=== PATIENT | female | born 1945 | race Caucasian/White ===

== ENCOUNTER → 2023-10-12 10:00 | Outpatient (REF) | payer MEDICARE, OTHER, SELFPAY | LOC: HWRAD 10:00 | PROVIDERS: ATTENDING PHYSICIAN Internal Medicine Critical Care Medicine; FAMILY PHYSICIAN Nurse Practitioner Adult Health; REFERRING PHYSICIAN Internal Medicine Medical Oncology | DX: Z87.891 Personal history of nicotine dependence (principal) | CPT/HCPCS: 71271 ==

== ENCOUNTER → 2023-11-22 08:42 | Outpatient (REF) | payer MEDICARE, OTHER, SELFPAY ==
[2023-11-22 12:51] LABS: % Basophils 1.1 % (0-2); % Immature Granulocytes 0.1 % (0-0.5); % Lymphocytes 32.4 % (20.5-51.1); % Monocytes 6.9 % (1.7-9.3); % Neutrophils 54.5 % (42.2-75.2); Absolute Basophils 0.1 10^3/uL (0-0.2); Absolute Eosinophils 0.4 10^3/uL (0-0.7); Absolute Lymphocytes 2.3 10^3/uL (1.2-3.4); Absolute Monocytes 0.5 10^3/uL (0.1-0.6); Absolute Neutrophils 3.9 10^3/uL (1.4-6.5); Hematocrit 38.5 % (37.0-47.0); Mean Corp Hgb Conc. 33.8 g/dL (33.0-37.0); Mean Corpuscular Volume 91.9 fL (81.0-99.0); Mean Platelet Volume 10.4 fL (7.4-10.4); Nucleated Red Blood Cells % 0 %; Platelet Count 192 10^3/uL (130-400); Red Blood Cell Count 4.19 10^6/uL (4.20-5.40); White Blood Cell Count 7.2 10^3/uL (4.8-10.8)
[2023-11-22 13:42] LABS: ALT (SGPT) 28 U/L (0-35); AST (SGOT) 28 U/L (14-36); Albumin 4.1 g/dl (3.5-5.0); Alkaline Phosphatase 70 U/L (38-126); Blood Urea Nitrogen 18 mg/dl (7-17); Calcium 9.4 mg/dl (8.4-10.2); Carbon Dioxide 29 mmol/L (22-30); Chloride 106 mmol/L (98-107); Glucose 101 mg/dl (70-99); HDL Cholesterol 57 mg/dl; Iron 97 ug/dl (37-170); LDL Cholesterol, Calculated 75 mg/dl; Potassium 4.6 mmol/L (3.5-5.1); Sodium 139 mmol/L (135-145); Total Bilirubin 0.5 mg/dl (0.2-1.3); Total Cholesterol 155 mg/dl (50-199); Total Protein 6.6 g/dl (6.3-8.2); Triglyceride 117 mg/dl (10-149); Very Low Density Lipoprotein 23 mg/dl (0-30); eGFR > 60.00
[2023-11-22 13:51] LABS: Percent Saturation 22 % (20-50); Total Iron Binding Capacity 423 ug/dl (265-497)
[2023-11-22 13:53] LABS: Glycohemoglobin (HgbA1c) 6.1 % (4.0-5.6)
[2023-11-22 14:09] LABS: Vitamin D, 25-OH*** 41.1 ng/mL (30-80)
[2023-11-22 14:19] LABS: C-Reactive Protein < 5.00 mg/L (0.0-10.00)
[2023-11-22 14:23] LABS: TSH Reflex To Free T4 2.09 uIU/ml (0.47-4.68)
[2023-11-22 14:27] LABS: Ferritin 38.5 ng/ml (11.1-264.0)
[2023-11-23 08:44] LABS: Intact PTH 50.8 pg/ml (13.6-85.8)
== END ==
LOC: HWLAB 08:42
PROVIDERS: ATTENDING PHYSICIAN Nurse Practitioner Adult Health
DX: E55.9 Vitamin D deficiency, unspecified (principal); M81.0 Age-related osteoporosis without current pathological fracture; D50.8 Other iron deficiency anemias; F32.1 Major depressive disorder, single episode, moderate; K76.0 Fatty (change of) liver, not elsewhere classified; Z13.29 Encounter for screening for other suspected endocrine disorder; R73.09 Other abnormal glucose
CPT/HCPCS: 80053; 80061; 82306; 82728; 83036; 83540; 83550; 83970; 84443; 85025; 86140

== ENCOUNTER → 2023-11-24 11:27 | Outpatient (REF) | payer MEDICARE, OTHER, SELFPAY | LOC: RAD 11:27 | PROVIDERS: ATTENDING PHYSICIAN Nurse Practitioner Adult Health | DX: M25.561 Pain in right knee (principal) | CPT/HCPCS: 73564 ==

== ENCOUNTER 2023-12-23 06:18 | Outpatient (RCR) | payer MEDICARE, OTHER, SELFPAY | END 2023-12-23 23:59 | disposition home or self-care (01) | LOC: RPT 06:18 | PROVIDERS: ATTENDING PHYSICIAN Nurse Practitioner Adult Health | DX: M25.561 Pain in right knee (principal); R26.81 Unsteadiness on feet; Z73.6 Limitation of activities due to disability | CPT/HCPCS: 97162; 97530 ==

== ENCOUNTER 2024-01-21 11:32 | Outpatient (RCR) | payer MEDICARE, OTHER, SELFPAY | END 2024-01-21 23:59 | disposition home or self-care (01) | LOC: RPT 11:32 | PROVIDERS: ATTENDING PHYSICIAN Nurse Practitioner Adult Health | DX: M25.561 Pain in right knee (principal); R26.81 Unsteadiness on feet; Z73.6 Limitation of activities due to disability | CPT/HCPCS: 97110; 97112; 97530 ==

== ENCOUNTER 2024-02-22 08:35 | Outpatient (RCR) | payer MEDICARE, OTHER, SELFPAY | END 2024-02-22 23:59 | disposition home or self-care (01) | LOC: RPT 08:35 | PROVIDERS: ATTENDING PHYSICIAN Nurse Practitioner Adult Health | DX: M25.561 Pain in right knee (principal); R26.81 Unsteadiness on feet; Z73.6 Limitation of activities due to disability | CPT/HCPCS: 97110; 97112; 97530 ==

== ENCOUNTER → 2024-02-22 08:50 | Outpatient (REF) | payer MEDICARE, OTHER, SELFPAY | LOC: RST 08:50 | PROVIDERS: ATTENDING PHYSICIAN Internal Medicine Critical Care Medicine; FAMILY PHYSICIAN Nurse Practitioner Adult Health | DX: R13.10 Dysphagia, unspecified (principal); R05.3 Chronic cough | CPT/HCPCS: 74230; 92611 ==

== ENCOUNTER 2024-03-21 09:09 | Outpatient (RCR) | payer MEDICARE, OTHER, SELFPAY | END 2024-03-21 23:59 | disposition home or self-care (01) | LOC: RPT 09:09 | PROVIDERS: ATTENDING PHYSICIAN Nurse Practitioner Adult Health | DX: M25.561 Pain in right knee (principal); R26.81 Unsteadiness on feet; Z73.6 Limitation of activities due to disability | CPT/HCPCS: 97110; 97112; 97530 ==

== ENCOUNTER → 2024-04-13 13:09 | Outpatient (REF) | payer MEDICARE, OTHER, SELFPAY ==
[2024-04-13 15:02] LABS: % Basophils 0.8 % (0-2); % Immature Granulocytes 0.2 % (0-0.5); % Lymphocytes 22.9 % (20.5-51.1); % Monocytes 6.7 % (1.7-9.3); % Neutrophils 67.4 % (42.2-75.2); Absolute Basophils 0.1 10^3/uL (0-0.2); Absolute Eosinophils 0.1 10^3/uL (0-0.7); Absolute Lymphocytes 1.4 10^3/uL (1.2-3.4); Absolute Monocytes 0.4 10^3/uL (0.1-0.6); Absolute Neutrophils 4.1 10^3/uL (1.4-6.5); Hematocrit 41.8 % (37.0-47.0); Mean Corp Hgb Conc. 33.5 g/dL (33.0-37.0); Mean Corpuscular Hgb 31.4 pg (27.0-31.0); Mean Corpuscular Volume 93.7 fL (81.0-99.0); Mean Platelet Volume 10.3 fL (7.4-10.4); Nucleated Red Blood Cells % 0 %; Platelet Count 175 10^3/uL (130-400); Red Blood Cell Count 4.46 10^6/uL (4.20-5.40); Red Cell Dist. Width 14.4 % (11.5-14.5); White Blood Cell Count 6.1 10^3/uL (4.8-10.8)
[2024-04-13 15:29] LABS: ALT (SGPT) 37 U/L (0-35); AST (SGOT) 36 U/L (14-36); Albumin 4.6 g/dl (3.5-5.0); Alkaline Phosphatase 82 U/L (38-126); Blood Urea Nitrogen 20 mg/dl (7-17); Calcium 9.4 mg/dl (8.4-10.2); Carbon Dioxide 24 mmol/L (22-30); Chloride 102 mmol/L (98-107); Glucose 109 mg/dl (70-99); HDL Cholesterol 55 mg/dl; LDL Cholesterol, Calculated 92 mg/dl; Potassium 4.1 mmol/L (3.5-5.1); Sodium 143 mmol/L (135-145); Total Bilirubin 0.7 mg/dl (0.2-1.3); Total Cholesterol 188 mg/dl (50-199); Total Protein 7.2 g/dl (6.3-8.2); Triglyceride 206 mg/dl (10-149); Very Low Density Lipoprotein 41 mg/dl (0-30); eGFR 58.39
[2024-04-13 15:58] LABS: TSH Reflex To Free T4 1.25 uIU/ml (0.47-4.68)
[2024-04-14 09:03] LABS: Glycohemoglobin (HgbA1c) 5.8 % (4.0-5.6)
== END ==
LOC: REG 13:09
PROVIDERS: ATTENDING PHYSICIAN Nurse Practitioner Adult Health
DX: K21.9 Gastro-esophageal reflux disease without esophagitis (principal); E78.00 Pure hypercholesterolemia, unspecified; R73.09 Other abnormal glucose; R05.1 Acute cough
CPT/HCPCS: 36415; 71046; 80053; 80061; 83036; 84443; 85025

== ENCOUNTER 2024-04-21 13:57 | Outpatient (RCR) | payer MEDICARE, OTHER, SELFPAY | END 2024-04-21 23:59 | disposition home or self-care (01) | LOC: RPT 13:57 | PROVIDERS: ATTENDING PHYSICIAN Nurse Practitioner Adult Health | DX: M25.561 Pain in right knee (principal); R26.81 Unsteadiness on feet; Z73.6 Limitation of activities due to disability; R53.83 Other fatigue; I89.0 Lymphedema, not elsewhere classified | CPT/HCPCS: 97112; 97530 ==

== ENCOUNTER 2024-05-25 09:08 | Outpatient (RCR) | payer MEDICARE, OTHER, SELFPAY | END 2024-05-25 23:59 | disposition home or self-care (01) | LOC: RPT 09:08 | PROVIDERS: ATTENDING PHYSICIAN Nurse Practitioner Adult Health | DX: M25.561 Pain in right knee (principal); R26.81 Unsteadiness on feet; Z73.6 Limitation of activities due to disability; R26.89 Other abnormalities of gait and mobility | CPT/HCPCS: 97112; 97530 ==

== ENCOUNTER → 2024-05-30 08:02 | Outpatient (REF) | payer MEDICARE, OTHER, SELFPAY ==
[2024-05-30 08:33] VITALS: BP 141/73; BP_SYST 78
[2024-05-30 09:28] VITALS: BP 144/72
== END ==
LOC: RADI 08:02
PROVIDERS: ATTENDING PHYSICIAN Otolaryngology; FAMILY PHYSICIAN Nurse Practitioner Adult Health
DX: D11.0 Benign neoplasm of parotid gland (principal)
CPT/HCPCS: 88173; 42400; 76942

== ENCOUNTER 2024-06-01 10:02 | Outpatient (RCR) | payer MEDICARE, OTHER, SELFPAY | END 2024-06-01 11:13 | disposition home or self-care (01) | LOC: RPT 10:02 | PROVIDERS: ATTENDING PHYSICIAN Nurse Practitioner Adult Health | DX: M25.561 Pain in right knee (principal); R26.81 Unsteadiness on feet; Z73.6 Limitation of activities due to disability | CPT/HCPCS: 97112; 97530 ==

== ENCOUNTER → 2024-06-08 11:22 | Outpatient (REF) | payer MEDICARE, OTHER, SELFPAY | LOC: RAD 11:22 | PROVIDERS: ATTENDING PHYSICIAN Nurse Practitioner Adult Health | DX: M25.531 Pain in right wrist (principal); M25.512 Pain in left shoulder | CPT/HCPCS: 73030; 73100; 73120 ==

== ENCOUNTER 2024-07-04 07:41 | Outpatient (RCR) | payer MEDICARE, OTHER, SELFPAY | END 2024-07-04 23:59 | disposition home or self-care (01) | LOC: RPT 07:41 | PROVIDERS: ATTENDING PHYSICIAN Nurse Practitioner Adult Health | DX: M25.512 Pain in left shoulder (principal); Z73.6 Limitation of activities due to disability; Z91.81 History of falling; M43.22 Fusion of spine, cervical region | CPT/HCPCS: 97112; 97161 ==

== ENCOUNTER → 2024-08-21 11:05 | Outpatient (REF) | payer MEDICARE, OTHER, SELFPAY ==
[2024-08-21 15:15] LABS: % Eosinophils 3.1 % (0-6); % Immature Granulocytes 0.1 % (0-0.5); % Lymphocytes 24.2 % (20.5-51.1); % Monocytes 6.2 % (1.7-9.3); % Neutrophils 65.4 % (42.2-75.2); Absolute Basophils 0.1 10^3/uL (0-0.2); Absolute Eosinophils 0.2 10^3/uL (0-0.7); Absolute Lymphocytes 1.7 10^3/uL (1.2-3.4); Absolute Monocytes 0.4 10^3/uL (0.1-0.6); Absolute Neutrophils 4.6 10^3/uL (1.4-6.5); Hemoglobin 13.7 g/dL (12.0-16.0); Mean Corp Hgb Conc. 33.4 g/dL (33.0-37.0); Mean Corpuscular Hgb 31.7 pg (27.0-31.0); Mean Corpuscular Volume 94.9 fL (81.0-99.0); Mean Platelet Volume 10.7 fL (7.4-10.4); Nucleated Red Blood Cells % 0 %; Platelet Count 179 10^3/uL (130-400); Red Blood Cell Count 4.32 10^6/uL (4.20-5.40); Red Cell Dist. Width 13.9 % (11.5-14.5); White Blood Cell Count 7.1 10^3/uL (4.8-10.8)
[2024-08-21 15:25] LABS: ALT (SGPT) 32 U/L (0-35); AST (SGOT) 32 U/L (14-36); Albumin 4.4 g/dl (3.5-5.0); Alkaline Phosphatase 83 U/L (38-126); Blood Urea Nitrogen 17 mg/dl (7-17); Calcium 9.3 mg/dl (8.4-10.2); Carbon Dioxide 28 mmol/L (22-30); Chloride 100 mmol/L (98-107); Glucose 112 mg/dl (70-99); HDL Cholesterol 50 mg/dl; LDL Cholesterol, Calculated 73 mg/dl; Potassium 4.2 mmol/L (3.5-5.1); Sodium 137 mmol/L (135-145); Total Bilirubin 0.5 mg/dl (0.2-1.3); Total Cholesterol 160 mg/dl (50-199); Triglyceride 187 mg/dl (10-149); Very Low Density Lipoprotein 37 mg/dl (0-30); eGFR > 60.00
[2024-08-22 11:32] LABS: Glycohemoglobin (HgbA1c) 5.7 % (4.0-5.6)
== END ==
LOC: HWLAB 11:05
PROVIDERS: ATTENDING PHYSICIAN Nurse Practitioner Adult Health
DX: I89.0 Lymphedema, not elsewhere classified (principal); R59.0 Localized enlarged lymph nodes; Z00.00 Encounter for general adult medical examination without abnormal findings; K76.0 Fatty (change of) liver, not elsewhere classified; E78.00 Pure hypercholesterolemia, unspecified; D50.8 Other iron deficiency anemias; E53.8 Deficiency of other specified B group vitamins; R73.09 Other abnormal glucose
CPT/HCPCS: 36415; 80053; 80061; 83036; 84443; 85025

== ENCOUNTER 2024-09-15 20:21 | Inpatient (IN) | payer MEDICARE, OTHER, SELFPAY ==
[2024-09-15 15:04] VITALS: BP 147/82
[2024-09-15 15:32] LABS: % Basophils 0.4 % (0-2); % Eosinophils 1.5 % (0-6); % Immature Granulocytes 0.4 % (0-0.5); % Lymphocytes 13.3 % (20.5-51.1); % Monocytes 6.5 % (1.7-9.3); % Neutrophils 77.9 % (42.2-75.2); Absolute Basophils 0.1 10^3/uL (0-0.2); Absolute Eosinophils 0.2 10^3/uL (0-0.7); Absolute Immature Granulocytes 0.1 10^3/uL (0-0.05); Absolute Lymphocytes 1.6 10^3/uL (1.2-3.4); Absolute Monocytes 0.8 10^3/uL (0.1-0.6); Absolute Neutrophils 9.5 10^3/uL (1.4-6.5); Hematocrit 44.1 % (37.0-47.0); Hemoglobin 14.7 g/dL (12.0-16.0); Mean Corp Hgb Conc. 33.3 g/dL (33.0-37.0); Mean Corpuscular Hgb 31.3 pg (27.0-31.0); Mean Corpuscular Volume 93.8 fL (81.0-99.0); Mean Platelet Volume 10.3 fL (7.4-10.4); Nucleated Red Blood Cells % 0 %; Platelet Count 159 10^3/uL (130-400); Red Cell Dist. Width 13.2 % (11.5-14.5); White Blood Cell Count 12.2 10^3/uL (4.8-10.8)
[2024-09-15 15:43] LABS: ALT (SGPT) 71 U/L (0-35); AST (SGOT) 58 U/L (14-36); Albumin 3.9 g/dl (3.5-5.0); Alkaline Phosphatase 99 U/L (38-126); Blood Urea Nitrogen 23 mg/dl (7-17); Calcium 9.1 mg/dl (8.4-10.2); Carbon Dioxide 29 mmol/L (22-30); Chloride 101 mmol/L (98-107); Glucose 125 mg/dl (70-99); Potassium 4.3 mmol/L (3.5-5.1); Sodium 136 mmol/L (135-145); Total Protein 6.5 g/dl (6.3-8.2); eGFR > 60.00
[2024-09-15 15:55] LABS: Lipase 3368 U/L (23-300)
--- NOTE | 2024-09-15 16:49 | ED.GENMED ---
History of Present Illness
General
Chief Complaint: Abdominal Symptoms
Source: patient
Exam Limitations: none
Time Seen by Provider: 09/15/24 16:37
Nursing documentation reviewed up to this point in time: agreed with
History of Present Illness
History of Present Illness:
Patient to ED with complaint of upper abdominal pain, nausea. Symptoms started 4 days ago. Denies fever/chills, vomiting, diarrhea. States she took Nexium and tumms without relief. Brought to ED by spouse for eval. No prior history of same.
Past History
Past History
ED Past Medical History: Cancer (breast: mastectomy, radiation, chemotherapy), GERD, Hypercholesterolemia, Other (Breast-cancer with reconstruction) and Other (Lymphedema RUE)
ED Past Surgical History: Appendectomy, Tonsilectomy and Other (mastectomy)
Social History
Tobacco: Non-smoker
Review of Systems
Review of Systems
Allergies reviewed?: Yes
All Other Systems: ROS reviewed and negative except as documented in HPI and ROS
Constitutional: Reports no symptoms
EENT: Reports no symptoms
Respiratory: Reports no symptoms
Cardiac: Reports no symptoms
ABD/GI: Reports abdominal pain (Upper abd. pain) and nausea
: Reports no symptoms
Musculoskeletal: Reports other (Lyphedema RUE (chronic))
Skin: Reports no symptoms
Neurological: Reports weakness
Psychiatric: Reports no symptoms
Phy Exam
General Physical Exam
General Presentation: well appearing and no apparent distress
General age: appears stated age
General Skin: warm and dry
General Habitus: normal
Cardiovascular Exam
Cardiovascular Exam: regular rate/rhythm
Gastrointestinal Exam
Gastrointestinal Exam: normal bowel sounds, soft, no organomegaly, non distended and no cva tenderness
Palpation: left lower quadrant: Minimal tenderness, right upper quadrant: Moderate tenderness and right lower quadrant: Minimal tenderness
Musculoskeletal Exam
Musculoskeletal Exam: full ROM and neuro vasc intact
Skin Exam
Skin Exam: normal color, warm/dry and no rash
Psychiatric Exam
Psychiatric Exam: normal mood/affect
Course
Orders/Labs/Results
Orders:
Orders
09/15/24 Dinner
NPO
Allow oral meds: Yes
Allow clear liquids: No
NPO with Ice Chips: No
09/15/24 15:07
Electrocardiogram (*1) Urgent
Reason for Study: Abdominal Pain
EKG- Treatment ONCE
09/15/24 15:18
Complete Blood Count/With Diff Urgent
Comprehensive Metabolic Panel Urgent
Lipase Urgent
09/15/24 16:46
CT Abd/pelvis W Iv Cont Urgent
Comment:
Reason For Exam: Upper abd pain, elevated lipase
0.9% Sodium Chloride 500 ml [Nss] 500 ml IV BOLUS
Ondansetron Injectable [Zofran] 4 mg IV NOW STA
09/15/24 19:53
Admit/Transfer Patient As Directed
Co-Sign Provider:
Level of Care: Inpatient admission
Assign to:: Medical/Surgical
Physician / Group: jennifer gutierrez
Diagnosis: Acute pancreatitis likley 2/2 to cymbalta increase
Reason for Hospitalization: Acute pancreatitis likley 2/2 to cymbalta increase
Expected length of stay greater than two midnights?: Yes
ELOS- Estimated Length of Stay in days: 4
I certify the patient meets the requirements for IP care: Yes
Code Status As Directed
Resuscitation Status: Full Code
09/15/24 19:59
PRN Pain Medication Management As Directed
May give lesser potent ordered pain med per pt: Yes
preference::
Protocol:: Medication orders for pain may be administered in a
manner that supports deferring to patient preference
when the pt is:
- Requesting an ordered lesser potent pain medication.
Least to most potent pain medications are defined
as: acetaminophen < NSAID < tramadol < opioids
(morphine, oxycodone, hydromorphone).
- Requesting a lesser dose of the same medication IF
ORDERED.
- Requesting a less intrusive route of administration
if both routes are prescribed by the provider (PO <
IV).
09/15/24 20:56
0.9% Sodium Chloride 1000 ml [Nss] 1,000 ml IV 150 mls/hr
Acetaminophen [Tylenol] 650 mg PO Q4HPRN PRN
Albuterol [ProAIR HFA INHALER] 2 puff INH R Q6HPRN PRN
Ondansetron Injectable [Zofran] 4 mg IV Q6HPRN PRN
09/15/24 20:56
Activity As Directed
Activity Level: As Tolerated
Intake/ Output As Directed
Frequency: Per unit guidelines
Pneumatic Compression Sleeves As Directed
Type: Knee high
Vital Signs As Directed
Frequency: Per unit guidelines
Weight As Directed
Frequency: Daily
DX Deep Vein Thrombosis Video Routine
09/16/24 06:00
Complete Blood Count/With Diff IN AM
Comprehensive Metabolic Panel IN AM
Lipid Profile [Cardiovascular Evaluation] IN AM
Magnesium IN AM
09/16/24 08:00
Ascorbic Acid [Vitamin C] 500 mg PO DAILY
Calcium Carbonate [Oscal Partha 500] 500 mg PO DAILY
Cholecalciferol (Vitamin D3) [VITAMIN D3 (cholecalciferol)] 25 mcg PO DAILY
Cyanocobalamin [Vitamin B-12] 1,000 mcg PO DAILY
Magnesium l-Lactate [Mag-Tab Sr] 84 mg PO DAILY
Pantoprazole [Protonix IV] 40 mg IV DAILY
Rosuvastatin Calcium [Crestor] 10 mg PO DAILY
Vitamin B Complex with C [B COMPLEX w/VITAMIN C] 1 caplet PO DAILY
09/17/24 06:00
Complete Blood Count/With Diff IN AM
Comprehensive Metabolic Panel IN AM
09/18/24 06:00
Complete Blood Count/With Diff IN AM
Comprehensive Metabolic Panel IN AM
09/19/24 06:00
Complete Blood Count/With Diff IN AM
Comprehensive Metabolic Panel IN AM
Abnormal Lab Results
09/15/24
15:18
WBC 12.2 H 10^3/uL
(4.8-10.8)
MCH 31.3 H pg
(27.0-31.0)
Abs Immat Gran (auto) 0.1 H 10^3/uL
(0-0.05)
Absolute Neuts (auto) 9.5 H 10^3/uL
(1.4-6.5)
Absolute Monos (auto) 0.8 H 10^3/uL
(0.1-0.6)
Neutrophils % 77.9 H %
(42.2-75.2)
Lymphocytes % 13.3 L %
(20.5-51.1)
BUN 23 H mg/dl
(7-17)
Glucose 125 H mg/dl
(70-99)
AST 58 H U/L
(14-36)
ALT 71 H U/L
(0-35)
Lipase 3368 H* U/L
(23-300)
09/15/24 15:18
09/15/24 15:18
Vital Signs
Initial and Last Documented VS:
Initial Vital Signs
Temp Pulse Resp BP Pulse Ox
98.5 F 94 16 147/82 99
09/15/24 15:04 09/15/24 15:04 09/15/24 15:04 09/15/24 15:04 09/15/24 15:04
Last Documented Vital Signs
Temp Pulse Resp BP Pulse Ox
98.2 F 93 20 124/69 94
09/15/24 21:22 09/15/24 21:22 09/15/24 21:22 09/15/24 21:22 09/15/24 21:22
*Critical Care Note
Total Time (30-74mins, 75-104mins- exclusive of procedures): Not Applicable
ED Attending Note
-
Portions of this chart may have been created with voice recognition software.� Occasional wrong word or��sound alike� substitutions may have occurred due to the inherent limitations of voice recognition software.
Discharge Plan
Departure
Patient Disposition: Admit
Date of Disposition: 09/15/24
Time of Disposition: 18:37
Presentation/result/management discussed w/ accepting MD/DO: Hospitalist
Patient with high blood pressure during this ER visit?: Yes
Condition: Fair
Covid-19: Not Applicable
Discharge Problem:
Acute pancreatitis
Interventions
Interventions:
*Risk Screen - Suicide Last Done: 09/15/24 15:04
*General Assessment Last Done: 09/15/24 20:57
*Neglect/Abuse Screening Last Done: 09/15/24 15:04
ED- Fall Risk Assessment Last Done: 09/15/24 20:57
*ED COVID-19 Vaccine History Last Done: 09/15/24 20:57
*Nursing Disposition Last Done: 09/15/24 20:57
LG-Gdpzza-Glrxamlcmw Assessment Last Done: 09/15/24 16:30
Discharge Date and Time
Discharge Date/Time: 09/15/24 20:57
[2024-09-15] MEDS: NSS 500 IV (17:00)
[2024-09-15] MEDS: ZOFRAN 4 MG IV (17:02)
[2024-09-15 18:30] VITALS: BP 122/58
--- NOTE | 2024-09-15 19:01 | HPS.HSE ---
Family Physician
-
Family Physician: Kelly Meyers
Chief Complaint
-
Abdominal pain with nausea, indigestion 4 days ago
History of Present Illness
79-year-old female complaining of upper abdominal pain with nausea, indigestion that started 4 days ago. The patient had her duloxetine dose increased from 10 mg to 40 mg 2 weeks ago she has only been on the medication approximately 1 year . She
was having indigestion took Nexium and Tums without relief. She denies fever, chills, vomiting, diarrhea, chest pain, palpitations, cough, shortness of breath, urinary symptoms. She reports she feels her abdomen is somewhat distended however her
Vick at bedside states that is her norm. She wears a constant girdle. She states she has a compression device that goes from her legs to her upper abdomen below breast and to her right arm that she wears for 1 hour a day and helps her with
her lymphedema mainly to her right arm ,but not so much in the abdomen and legs however I do not appreciate any edema to abdomen or legs. She states she was wearing this religiously until this past summer when she has backed off somewhat. She
reports her weight is typically between 140 and 143 pounds she is currently 144.9 pounds in the ER. She is slightly tender in her epigastric area no sign. She has no history of gallstones. She had history of EGD and colonoscopy 4 years ago
at [place] [facility] that was normal she states. She has past medical history of nonestrogen receptive right breast cancer status post radiation/chemotherapy, mastectomy 1999, and flap reconstruction 2003, chronic radicular cervical pain
right greater than left status post cervical fusion with pins March 2023 and facet rhizotomy 2023, chronic bilateral left and right lateral flank strain due to posture with walking as she is afraid to fall chronic neuropathy bilateral legs and
feet likely status post chemotherapy, GERD, HLD, hypomagnesemia, former smoker 53-year 1 pack a day quit March 2003, chronic nodule right upper lung being monitored by patient's engineer exhauster with x-rays
Medical History
Past Medical History
Past Medical History: Reports Other
Additional Past Medical History:
nonestrogen receptive right breast cancer status post radiation/chemotherapy, mastectomy 1999, and flap reconstruction 2003
chronic radicular cervical pain right greater than left status post cervical fusion with pins March 2023 and facet rhizotomy 2023
chronic neuropathy bilateral legs and feet likely status post chemotherapy
BETTE
HLD
hypomagnesemia
former smoker 53-year 1 pack a day quit March 2003
chronic nodule right upper lung being monitored by patient's engineer exhauster with x-rays
Past Surgical History: Reports Other
Additional Past Surgical History:
Appendectomy
Tonsillectomy
nonestrogen receptive right breast cancer status post radiation/chemotherapy, mastectomy 1999, and flap reconstruction 2003
chronic radicular cervical pain right greater than left status post cervical fusion with pins March 2023 and facet rhizotomy 2023
Reported [facility]/Endo 4 years ago [facility] negative per patient
Social History
Tobacco: Former Smoker (53 years 1 pack a day quit March 2023)
Alcohol: Occasional (1 drink every 4 to 6 months)
Drug: None
Personal: ( Vick)
Living: With Family
Employment: Retired
Family History
Family History: Other (Father age 36 colon cancer, sister history of 2 different types of breast cancer unknown, HTN, DM 2, gallstones status postcholecystectomy, mother age 80 Alzheimer's)
Allergies / Home Medications
Allergies reflects when Allergies were last updated in [employer].
Home Medications with original date entered in [employer]
Allergy/Medication List:
Allergies
Allergy/AdvReac Type Severity Reaction Status Date / Time
acetaminophen [From Percocet] Allergy 'panic Verified 09/15/24 15:06
attacks'
oxycodone HCl [From Percocet] Allergy 'panic Verified 09/15/24 15:06
attacks'
Home Medications
duloxetine 20 mg capsule,delayed release 40 mg PO DAILY 05/30/24
esomeprazole magnesium 20 mg capsule,delayed release 40 mg PO DAILY 05/30/24
rosuvastatin 10 mg tablet (Crestor) 10 mg PO DAILY 05/30/24
albuterol sulfate 90 mcg/actuation aerosol inhaler 2 puff inhalation R Q6HPRN PRN sob 09/15/24
ascorbic acid (vitamin C) 500 mg tablet (Vitamin C) 500 mg PO DAILY 09/15/24
calcium carbonate 500 mg PO DAILY 09/15/24
cholecalciferol (vitamin D3) 25 mcg (1,000 unit) tablet (Vitamin D3) 25 mcg PO DAILY 09/15/24
cyanocobalamin (vitamin B-12) 1,000 mcg tablet 1,000 mcg PO DAILY 09/15/24
magnesium oxide 400 mg PO DAILY 09/15/24
naproxen sodium 220 mg tablet (Aleve) 660 mg PO DAILYPRN PRN mild pain 09/15/24
omega-3 fatty acids 1,000 mg PO DAILY 09/15/24
therapeutic multivitamin 1 tab PO DAILY 09/15/24
vitamin B complex 1 tab PO DAILY 09/15/24
Review of Systems
-
History Source: Patient and Family ( Vick at bedside)
A 12 point ROS was completed and negative except as noted: Yes
Constitutional: Denies Fever, Fatigue or Chills
EENT: Denies Sore Throat or Runny Nose
Respiratory: Denies Cough or Trouble Breathing
Cardiac: Denies Chest Pain, Diaphoresis, Palpitations or Syncope
Abdomen/GI: Reports Abdominal Pain (Midepigastric), Nausea and Other (Indigestion); Denies Vomiting, Diarrhea, Constipated, Bloody Stools or Black Stools
: Reports Incontinence (Chronic urinary); Denies Dysuria, Frequency, Flank Pain or Dark Urine
Musculoskeletal: Reports Edema (Chronic lymphedema right lower extremity); Denies Joint Pain
Skin: Denies Itching or Rash
Neurological: Denies Dizzy, Headache or Weakness
Endocrine: Reports No Symptoms
Hematologic/Lymphatic: Reports No Symptoms
Psych: Reports Calm
Physical Exam
Vital Signs
Vital Signs
Temp Pulse Resp BP Pulse Ox
98.5 F 89 23 147/82 92
09/15/24 15:04 09/15/24 17:45 09/15/24 17:45 09/15/24 15:04 09/15/24 17:45
Physical Exam
General: Comfortable and Conversant; No Pain, Fever or Chills
HEENT: NormoCephalic, Anicteric, Moist mucous membranes, Atraumatic, PERRLA and Landmark Conjunctivae
Respiratory: Clear; No Wheezes, Rales or Rhonchi
Cardiac: S1/S2, Regular Rhythm and Peripheral Edema (Chronic right arm lymphedema edema from mastectomy); No Murmur, Rub or Gallop
GI: Soft, Normal Bowel Sounds, Tender (Minimal midepigastric), Distended (Slight) and No Hepatosplenomegaly
Rectal: Deferred by Provider
Genito-urinary: Deferred by me
Musculoskeletal: No Clubbing, No Cyanosis and Edema, Right Upper Extremity (+2); No Edema, Left Upper Extremity, Edema, Left Lower Extremity or Edema, Right Lower Extremity
Skin: Warm and Dry; No Rash
Neuro: AO x 3, No Motor Deficits, Nonfocal/grossly intact, Cranial Nerves Intact and No Sensory Deficits; No DTR's Intact & Symmetrical, Slurred Speech, Facial Droop, Tremors or Sedated
Psych: Calm
Laboratory Results
-
09/15/24 15:18
09/15/24 15:18
Laboratory Results
Total Bilirubin 1.0 mg/dl (0.2-1.3) 09/15/24 15:18
AST 58 U/L (14-36) H 09/15/24 15:18
ALT 71 U/L (0-35) H 09/15/24 15:18
Alkaline Phosphatase 99 U/L (38-126) 09/15/24 15:18
Lipase 3368 U/L (23-300) H* 09/15/24 15:18
Impression/Plan
-
Impression/plan:
Admit to MEd surg
#Acute edematous pancreatitis 2/2 duloxetine increase
#Moderate diffuse hepatic steatosis per CT
Patient had duloxetine dose increased from 10 mg to 40 mg 2 weeks ago she has only been on the medication approximately 1 year
WBC 12.2
-N.p.o.
-IV NSS 150 cc/h
-IV Zofran helped with pain relief
-Check lipid profile
-Follow CBC, CMP
-STOP Cymbalta 40 mg daily,
CT abdomen pelvis with IV contrast:
1. MILD ACUTE INTERSTITIAL EDEMATOUS PANCREATITIS.
2. No CT evidence for biliary obstruction.
3. Moderate diffuse hepatic steatosis.
4. Severe calcific atherosclerotic plaque in the abdominal aorta.
5. Severe multilevel lower lumbar facet joint arthrosis.
#Moderate diffuse hepatic steatosis
-When able to resume diet recommend low-fat
#Dx 2009 estrogen receptive right breast cancer status post radiation, mastectomy, and flap reconstruction 2003
#Chronic RIGHT ARM LYMPHEDEMA
#Chronic leg and abdomen sensation of lymphedema wears a zip up lymphedema pump garment from legs to upper abdomen-does not report much improvement
-Patient goes to lymphedema clinic x 20 years and wears lymphedema pump garment
#Chronic radicular neck pain right greater than left
#History of cervical fusion with pins March 2023
-Patient's status post facet rhizotomy right side neck 2023 with no relief
-Recommended patient try a TENS unit to help with her pain
#Chronic neuropathy bilateral feet likely secondary to chemotherapy
-STOP Cymbalta 40 mg daily, vitamin B complex
-
# GERD
-Patient on as omeprazole 40 mg daily will continue IV Protonix 40 mg daily
-Continue calcium carbonate 500 mg daily
# HLD
Check lipid profile
-Continue Mag-Ox 400 mg daily
#Chronic right sided pulmonary nodule being monitored by pulmonary over the past few years has been stable
Former smoker 53 years 1 pack a day quit March 2023
#Chronic urinary incontinence
#hypomagnesemia
-Check mag level, continue Mag-Ox
DVT prophylaxis
SCDs
Full code
[2024-09-15 20:00] VITALS: BP 97/64
--- NOTE | 2024-09-15 20:11 | W.PN.UPDATE ---
Update Note
Progress Note Update
This is an addendum to the H&P written by Rama Pruett on 09/15/2024. Patient seen and examined independently with PATIENT CARE ASSOCIATE.
79-year-old female past medical history of breast cancer status post mastectomy and chemotherapy and reconstruction with RUQ lymphedema, prediabetes, hypertension, GERD, hypercholesteremia, presenting with upper abdominal pain and nausea starting 4
days ago.
Duloxetine dose was increased 2 weeks ago.
Patient takes citrus pectin and sour sops.
Lipase of 3300. Minimal transaminitis on labs.
CT abdomen pelvis shows mild acute interstitial edematous otitis. No evidence of biliary obstruction. Moderate diffuse hepatic steatosis.
Presentation consistent with acute pancreatitis although unclear etiology could be secondary to increased duloxetine dose 2 weeks ago.
N.p.o. IV fluids. Hold duloxetine. Check triglyceride level. Pain control.
[2024-09-15 21:22] VITALS: BP 124/69
[2024-09-15 21:23] VITALS: BMI 27.9
[2024-09-15] MEDS: NSS 1000 IV (21:50)
[2024-09-15 23:42] VITALS: BP 115/57
[2024-09-16] MEDS: NSS 1000 IV ×3 (04:36→21:15)
[2024-09-16 06:00] VITALS: BMI 27.7
[2024-09-16 07:30] VITALS: BP 100/69
[2024-09-16 08:25] LABS: % Basophils 0.5 % (0-2); % Eosinophils 2.7 % (0-6); % Immature Granulocytes 0.2 % (0-0.5); % Monocytes 8.1 % (1.7-9.3); % Neutrophils 66.5 % (42.2-75.2); Absolute Eosinophils 0.2 10^3/uL (0-0.7); Absolute Lymphocytes 1.9 10^3/uL (1.2-3.4); Absolute Monocytes 0.7 10^3/uL (0.1-0.6); Absolute Neutrophils 5.7 10^3/uL (1.4-6.5); Hematocrit 37.4 % (37.0-47.0); Hemoglobin 12.1 g/dL (12.0-16.0); Mean Corp Hgb Conc. 32.4 g/dL (33.0-37.0); Mean Corpuscular Hgb 30.7 pg (27.0-31.0); Mean Corpuscular Volume 94.9 fL (81.0-99.0); Mean Platelet Volume 10.5 fL (7.4-10.4); Nucleated Red Blood Cells % 0 %; Platelet Count 141 10^3/uL (130-400); Red Blood Cell Count 3.94 10^6/uL (4.20-5.40); Red Cell Dist. Width 13.6 % (11.5-14.5); White Blood Cell Count 8.5 10^3/uL (4.8-10.8)
[2024-09-16 08:44] LABS: ALT (SGPT) 65 U/L (0-35); AST (SGOT) 55 U/L (14-36); Albumin 2.9 g/dl (3.5-5.0); Alkaline Phosphatase 78 U/L (38-126); Blood Urea Nitrogen 23 mg/dl (7-17); Calcium 7.9 mg/dl (8.4-10.2); Carbon Dioxide 25 mmol/L (22-30); Chloride 109 mmol/L (98-107); Estimated Creatinine Clearance 59 ml/min; Glucose 87 mg/dl (70-99); HDL Cholesterol 28 mg/dl; LDL Cholesterol, Calculated 61 mg/dl; Magnesium 2.1 mg/dl (1.6-2.3); Potassium 4.3 mmol/L (3.5-5.1); Sodium 137 mmol/L (135-145); Total Bilirubin 0.7 mg/dl (0.2-1.3); Total Cholesterol 107 mg/dl (50-199); Total Protein 5.1 g/dl (6.3-8.2); Triglyceride 94 mg/dl (10-149); Very Low Density Lipoprotein 18 mg/dl (0-30); eGFR > 60.00
--- NOTE | 2024-09-16 09:36 | CM ---
Patient seen at bedside.
IA Completed
Dx: acute pancreatitis
PMH: breast ca s/p mastectomy/chemo, RUE lymphedema, htn, gerd
Lives with in a 2 story home, no steps to enter, flight steps to bedroom, 1st floor bathroom
PLOF: Independent, driving
Denies DME
Has had VN in past 2022 does not recall agency, denies Rehab
denies insecurities
PCP: Klely Meyers
Pharmacy: [facility], [place]
PLAN: home, no anticipated needs when medically stable
[2024-09-16] MEDS: B COMPLEX w/VITAMIN C PO (09:40)
[2024-09-16] MEDS: OSCAL CAL 500 500 MG PO (09:40)
[2024-09-16] MEDS: VITAMIN C 500 MG PO (09:40)
[2024-09-16] MEDS: VITAMIN D3 (cholecalciferol) 25 MCG PO (09:40)
[2024-09-16] MEDS: PROTONIX IV 40 MG IV (09:40)
[2024-09-16] MEDS: MAG-TAB SR 84 MG PO (09:40)
[2024-09-16] MEDS: NSS (PRESERVATIVE FREE) 10 ML IV (09:40)
[2024-09-16] MEDS: VITAMIN B-12 1000 MCG PO (09:40)
[2024-09-16] MEDS: CRESTOR 10 MG PO (09:40)
--- NOTE | 2024-09-16 12:12 | W.PN.HOSP.TC ---
Today's Communication/Plan
-
Continue NPO, fluids and pain control.
Assessment / Plan
Assessment / Plan
79-year-old woman with upper abdominal pain with nausea, indigestion that started 4 days ago. The patient had her duloxetine dose increased from 10 mg to 40 mg 2 weeks ago she has only been on the medication approximately 1 year. Found to have
pancreatitis.
1. Acute edematous pancreatitis possibly 2/2 duloxetine increase
Moderate diffuse hepatic steatosis per CT
Patient had duloxetine dose increased from 10 mg to 40 mg 2 weeks ago she has only been on the medication approximately 1 year
WBC 12.2
-N.p.o.
-IV NSS 150 cc/h
-IV Zofran helped with pain relief
-Check lipid profile
-Follow CBC, CMP
-STOP Cymbalta 40 mg daily,
CT abdomen pelvis with IV contrast:
1. MILD ACUTE INTERSTITIAL EDEMATOUS PANCREATITIS.
2. No CT evidence for biliary obstruction.
3. Moderate diffuse hepatic steatosis.
4. Severe calcific atherosclerotic plaque in the abdominal aorta.
5. Severe multilevel lower lumbar facet joint arthrosis.
2. Moderate diffuse hepatic steatosis
-When able to resume diet recommend low-fat
3. Dx 2009 estrogen receptive right breast cancer status post radiation, mastectomy, and flap reconstruction 2003
4. Chronic RIGHT ARM LYMPHEDEMA
5. Chronic leg and abdomen sensation of lymphedema wears a zip up lymphedema pump garment from legs to upper abdomen-does not report much improvement
-Patient goes to lymphedema clinic x 20 years and wears lymphedema pump garment
6. Chronic radicular neck pain right greater than left
-Pain control as needed
7. History of cervical fusion with pins March 2023
-Patient's status post facet rhizotomy right side neck 2023 with no relief
-Recommended patient try a TENS unit to help with her pain
8. 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
-STOP Cymbalta 40 mg daily, vitamin B complex
9. GERD
-Patient on as omeprazole 40 mg daily will continue IV Protonix 40 mg daily
-Continue calcium carbonate 500 mg daily
10. HLD
-Check lipid profile
-Continue Mag-Ox 400 mg daily
11. Chronic right sided pulmonary nodule being monitored by pulmonary over the past few years has been stable
Former smoker 53 years 1 pack a day quit March 2023
12. Chronic urinary incontinence
13. hypomagnesemia
-Check mag level, continue Mag-Ox
DVT prophylaxis - SCDs
Full code
Anticipated Discharge: > 48 hours
Subjective/Interval History
-
Date of Service: September 16, 2024
Objective Data
-
Labs:
Laboratory Results
09/16/24
07:54
WBC 8.5
Hgb 12.1
Hct 37.4
Plt Count 141
Sodium 137
Potassium 4.3
Chloride 109 H
Carbon Dioxide 25
BUN 23 H
Creatinine 0.7
Glucose 87
Calcium 7.9 L
Total Bilirubin 0.7
AST 55 H
ALT 65 H
Alkaline Phosphatase 78
Vital Signs:
Vital Signs
Temp Pulse Resp BP Pulse Ox
98.5 F 95 18 100/69 97
09/16/24 07:30 09/16/24 07:30 09/16/24 07:30 09/16/24 07:30 09/16/24 09:00
[2024-09-16 15:10] VITALS: BP 114/61
[2024-09-16 23:37] VITALS: BP 125/80
[2024-09-17] MEDS: NSS 1000 IV ×2 (04:17→05:31)
[2024-09-17] MEDS: MAG-TAB SR 84 MG PO (04:26)
[2024-09-17 06:00] VITALS: BMI 28.2
[2024-09-17 07:55] VITALS: BP 138/56
[2024-09-17 08:07] LABS: % Basophils 0.5 % (0-2); % Eosinophils 2.8 % (0-6); % Immature Granulocytes 0.3 % (0-0.5); % Lymphocytes 19.3 % (20.5-51.1); % Monocytes 7.3 % (1.7-9.3); % Neutrophils 69.8 % (42.2-75.2); Absolute Eosinophils 0.2 10^3/uL (0-0.7); Absolute Lymphocytes 1.7 10^3/uL (1.2-3.4); Absolute Monocytes 0.6 10^3/uL (0.1-0.6); Absolute Neutrophils 6.1 10^3/uL (1.4-6.5); Hematocrit 34.8 % (37.0-47.0); Hemoglobin 11.6 g/dL (12.0-16.0); Mean Corp Hgb Conc. 33.3 g/dL (33.0-37.0); Mean Corpuscular Hgb 31.4 pg (27.0-31.0); Mean Corpuscular Volume 94.3 fL (81.0-99.0); Mean Platelet Volume 11.5 fL (7.4-10.4); Nucleated Red Blood Cells % 0 %; Platelet Count 156 10^3/uL (130-400); Red Blood Cell Count 3.69 10^6/uL (4.20-5.40); Red Cell Dist. Width 13.5 % (11.5-14.5); White Blood Cell Count 8.7 10^3/uL (4.8-10.8)
--- NOTE | 2024-09-17 08:14 | W.PN.HOSP.TC ---
Addendum entered and electronically signed by Shay Shah DO 09/17/24 08:41:
Informed by nursing of left upper extremity swelling due to IV fluid infiltration.
IV fluids discontinued, IV catheter removed.
On exam arm is diffusely swollen but her pulses are intact. There is no signs of vascular compromise. No cyanosis.
Keep left upper extremity elevated. Discussed with patient to monitor for any signs worsening symptoms such as swelling, cyanosis, severe pain, etc.
Keep arm elevated after discharge as well.
Original Note:
Today's Communication/Plan
-
Low-fat diet
Possible discharge
Assessment / Plan
Assessment / Plan
Gen-AAOx3, NAD
HEENT-NC, AT, anicteric, clear oral mm
Neck-supple
CV-reg, no M, +S1/S2
Lungs-clear B/L
Abd-soft, NT, ND
Ext-no edema
Musculoskeletal-no cyanosis, clubbing
Skin-warm and dry
Neuro-grossly non-focal
Psych-calm, cooperative
Acute pancreatitis -suspect may be related to herbal supplements. First episode of pancreatitis in her life.
Recommend to discontinue the supplements moving forward. She did purchase the supplements off [employer]. Discussed the unregulated nature of supplements especially in terms of toxicity and lack of efficacy. Doubt pancreatitis related to Cymbalta but
would recommend lowering the dose to 20 mg daily and following up with her physician. Discussed in detail with patient.
No evidence of gallstones on imaging. She does not drink alcohol at a substantial enough amount to cause pancreatitis but I did mention that she should probably avoid alcohol in the future to avoid any potential risk.
Dx 2009 estrogen receptive right breast cancer status post radiation, mastectomy, and flap reconstruction 2003
Chronic RIGHT ARM LYMPHEDEMA
Chronic leg and abdomen sensation of lymphedema wears a zip up lymphedema pump garment from legs to upper abdomen-does not report much improvement
-Patient goes to lymphedema clinic x 20 years and wears lymphedema pump garment
Chronic radicular neck pain right greater than left
-Pain control as needed
History of cervical fusion with pins March 2023
-Patient's status post facet rhizotomy right side neck 2023 with no relief
-Recommended patient try a TENS unit to help with her pain
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
-STOP Cymbalta 40 mg daily, vitamin B complex
GERD
-Patient on as omeprazole 40 mg daily will continue IV Protonix 40 mg daily
-Continue calcium carbonate 500 mg daily
Hyperlipidemia -she is on rosuvastatin. Mild transaminase elevation noted, less than 2 times the upper limit of normal, trending down. Can recheck as an outpatient.
Chronic right sided pulmonary nodule being monitored by pulmonary over the past few years has been stable
Former smoker 53 years 1 pack a day quit March 2023
Chronic urinary incontinence
hypomagnesemia
-Check mag level, continue Mag-Ox
Full code
Dispo -anticipate discharge today if she tolerates solid food. Follow-up with PCP.
32-minute spent in discharge process.
Anticipated Discharge: Today
Subjective/Interval History
-
Date of Service: September 17, 2024
Patient seen and examined. Feels better. No complaints.
Objective Data
-
Labs:
Laboratory Results
09/17/24
06:02
WBC 8.7
Hgb 11.6 L
Hct 34.8 L
Plt Count 156
Sodium Pending
Potassium Pending
Chloride Pending
Carbon Dioxide Pending
BUN Pending
Creatinine Pending
Glucose Pending
Calcium Pending
Total Bilirubin Pending
AST Pending
ALT Pending
Alkaline Phosphatase Pending
Vital Signs:
Vital Signs
Temp Pulse Resp BP Pulse Ox
98.1 F 71 18 138/56 99
09/17/24 07:55 09/17/24 07:55 09/17/24 07:55 09/17/24 07:55 09/17/24 07:55
Review of Systems
-
History Source: Patient
All other systems: Reviewed and negative
--- NOTE | 2024-09-17 08:28 | VATNOTE ---
During routine rounds, left arm noted to have significant swelling. Patient states IV had been 'burning' through most of the night. Patient reports history of neuropathy in b/l hands, denies worse than normal. Slight decreased cap refill noted in
fingers, radial pulse weak but palpable. Left arm elevated, warm blanket applied. Discussed at bedside with Leola UNDERWOOD. Attending MD made aware.
[2024-09-17] MEDS: PROTONIX IV IV (08:41)
[2024-09-17] MEDS: NSS (PRESERVATIVE FREE) IV (08:41)
[2024-09-17] MEDS: PROTONIX 40 MG PO (08:41)
[2024-09-17 09:25] LABS: ALT (SGPT) 80 U/L (0-35); AST (SGOT) 73 U/L (14-36); Albumin 2.8 g/dl (3.5-5.0); Alkaline Phosphatase 82 U/L (38-126); Blood Urea Nitrogen 20 mg/dl (7-17); Carbon Dioxide 24 mmol/L (22-30); Chloride 109 mmol/L (98-107); Estimated Creatinine Clearance 59 ml/min; Glucose 84 mg/dl (70-99); Lipase 833 U/L (23-300); Potassium 4.5 mmol/L (3.5-5.1); Sodium 139 mmol/L (135-145); Total Bilirubin 0.6 mg/dl (0.2-1.3); Total Protein 5.1 g/dl (6.3-8.2); eGFR > 60.00
[2024-09-17] MEDS: CRESTOR 10 MG PO (10:30)
[2024-09-17] MEDS: B COMPLEX w/VITAMIN C 1 CAPLET PO (10:30)
[2024-09-17] MEDS: VITAMIN B-12 1000 MCG PO (10:31)
[2024-09-17] MEDS: OSCAL CAL 500 500 MG PO (10:31)
[2024-09-17] MEDS: VITAMIN D3 (cholecalciferol) 25 MCG PO (10:31)
[2024-09-17] MEDS: VITAMIN C 500 MG PO (10:31)
--- NOTE | 2024-09-17 13:12 | W.DS.TRANS ---
DC Summary - Or Assistant
-
Discharge Instructions:
Discharge Diagnosis/Procedures Acute pancreatitis
Diet Low Cholesterol,Low Fat
Activity As tolerated
Driving Restrictions As prior to admission
Bathing Restrictions None
Blood Work CMP in 1 week with your primary care doctor
Instructions:
Stand-Alone Forms:
Changes to Home Medications: Yes
Discharge Medications:
DC Medications w/original date entered in [facility]
esomeprazole magnesium 20 mg capsule,delayed release 40 mg PO DAILY gerd 05/30/24
rosuvastatin 10 mg tablet (Crestor) 10 mg PO DAILY High Cholesterol 05/30/24
albuterol sulfate 90 mcg/actuation aerosol inhaler 2 puff inhalation R Q6HPRN PRN sob 09/15/24
ascorbic acid (vitamin C) 500 mg tablet (Vitamin C) 500 mg PO DAILY Supplement 09/15/24
calcium carbonate 500 mg PO DAILY Supplement 09/15/24
cholecalciferol (vitamin D3) 25 mcg (1,000 unit) tablet (Vitamin D3) 25 mcg PO DAILY Supplement 09/15/24
cyanocobalamin (vitamin B-12) 1,000 mcg tablet 1,000 mcg PO DAILY Supplement 09/15/24
magnesium oxide 400 mg PO DAILY Supplement 09/15/24
naproxen sodium 220 mg tablet (Aleve) 660 mg PO DAILYPRN PRN mild pain 09/15/24
omega-3 fatty acids 1,000 mg PO DAILY Supplement 09/15/24
therapeutic multivitamin 1 tab PO DAILY Supplement 09/15/24
vitamin B complex 1 tab PO DAILY Supplement 09/15/24
duloxetine 20 mg capsule,delayed release 20 mg PO DAILY Mental Health/Anxiety #0 caps 09/17/24
Home Medication Changes
Cymbalta reduced to 20 mg daily
Pending Results: No
--- NOTE | 2024-09-17 14:29 | PTCARENOTE ---
Pt tolerating low fat diet without any N/V or abdominal pain. Made Dr. Shah aware, will discharge pt.
--- NOTE | 2024-09-17 14:38 | CM ---
IMM explained & signed.
No needs
Discharge to home
PLAN: Home, no needs
to transport
[2024-09-17 15:48] VITALS: BP 113/57
== END 2024-09-17 16:35 | disposition home or self-care (01) | DRG 440 ==
LOC: 4 EAST ACU 20:21
PROVIDERS: Clinical Nurse Specialist Family Health; ADMITTING PHYSICIAN Hospitalist; ATTENDING PHYSICIAN Hospitalist; EMERGENCY PHYSICIAN Emergency Medicine; FAMILY PHYSICIAN Nurse Practitioner Adult Health
DX: K85.80 Other acute pancreatitis without necrosis or infection (principal); K21.9 Gastro-esophageal reflux disease without esophagitis; E83.42 Hypomagnesemia; E78.00 Pure hypercholesterolemia, unspecified; G62.9 Polyneuropathy, unspecified; K76.0 Fatty (change of) liver, not elsewhere classified; I89.0 Lymphedema, not elsewhere classified; N39.498 Other specified urinary incontinence; R91.1 Solitary pulmonary nodule; Z87.891 Personal history of nicotine dependence; Z88.5 Allergy status to narcotic agent; Z79.899 Other long term (current) drug therapy; Z98.1 Arthrodesis status; Z92.3 Personal history of irradiation; Z85.3 Personal history of malignant neoplasm of breast
CPT/HCPCS: 74177; 80053; 80061; 83690; 83735; 85025; 93005; 96374; 99285; Q9967

== ENCOUNTER → 2024-09-28 11:39 | Outpatient (REF) | payer MEDICARE, OTHER, SELFPAY ==
[2024-09-28 15:33] LABS: ALT (SGPT) 136 U/L (0-35); AST (SGOT) 110 U/L (14-36); Albumin 3.8 g/dl (3.5-5.0); Alkaline Phosphatase 75 U/L (38-126); Amylase 92 U/L (30-110); Blood Urea Nitrogen 14 mg/dl (7-17); Carbon Dioxide 26 mmol/L (22-30); Chloride 104 mmol/L (98-107); Glucose 110 mg/dl (70-99); Lipase 795 U/L (23-300); Potassium 4.5 mmol/L (3.5-5.1); Sodium 139 mmol/L (135-145); Total Bilirubin 0.6 mg/dl (0.2-1.3); Total Protein 6.4 g/dl (6.3-8.2); eGFR > 60.00
[2024-09-28 15:47] LABS: Vitamin D, 25-OH*** 43.5 ng/mL (30-80)
== END ==
LOC: HWLAB 11:39
PROVIDERS: ATTENDING PHYSICIAN Nurse Practitioner Adult Health
DX: K85.90 Acute pancreatitis without necrosis or infection, unspecified (principal); E55.9 Vitamin D deficiency, unspecified; M81.0 Age-related osteoporosis without current pathological fracture
CPT/HCPCS: 36415; 80053; 82150; 82306; 83690

== ENCOUNTER → 2024-10-17 10:42 | Outpatient (REF) | payer MEDICARE, OTHER, SELFPAY ==
[2024-10-17 13:03] LABS: ALT (SGPT) 26 U/L (0-35); AST (SGOT) 27 U/L (14-36); Albumin 4.2 g/dl (3.5-5.0); Alkaline Phosphatase 84 U/L (38-126); Blood Urea Nitrogen 17 mg/dl (7-17); Calcium 9.7 mg/dl (8.4-10.2); Carbon Dioxide 29 mmol/L (22-30); Chloride 105 mmol/L (98-107); Glucose 115 mg/dl (70-99); Lipase 375 U/L (23-300); Potassium 4.9 mmol/L (3.5-5.1); Sodium 143 mmol/L (135-145); Total Bilirubin 0.7 mg/dl (0.2-1.3); Total Protein 6.9 g/dl (6.3-8.2); eGFR > 60.00
== END ==
LOC: HWLAB 10:42
PROVIDERS: ATTENDING PHYSICIAN Nurse Practitioner Adult Health
DX: R79.89 Other specified abnormal findings of blood chemistry (principal); Z87.19 Personal history of other diseases of the digestive system; K76.0 Fatty (change of) liver, not elsewhere classified
CPT/HCPCS: 36415; 80053; 83690

== ENCOUNTER → 2024-11-06 10:43 | Outpatient (REF) | payer MEDICARE, OTHER, SELFPAY ==
[2024-11-06 15:57] LABS: ALT (SGPT) 27 U/L (0-35); AST (SGOT) 34 U/L (14-36); Albumin 4.7 g/dl (3.5-5.0); Alkaline Phosphatase 91 U/L (38-126); Blood Urea Nitrogen 14 mg/dl (7-17); Calcium 9.4 mg/dl (8.4-10.2); Carbon Dioxide 25 mmol/L (22-30); Chloride 104 mmol/L (98-107); Glucose 122 mg/dl (70-99); Lipase 233 U/L (23-300); Potassium 4.6 mmol/L (3.5-5.1); Sodium 142 mmol/L (135-145); Total Bilirubin 0.6 mg/dl (0.2-1.3); Total Protein 7.3 g/dl (6.3-8.2); eGFR > 60.00
== END ==
LOC: HWLAB 10:43
PROVIDERS: ATTENDING PHYSICIAN Nurse Practitioner Adult Health
DX: R79.89 Other specified abnormal findings of blood chemistry (principal); R74.8 Abnormal levels of other serum enzymes
CPT/HCPCS: 36415; 80053; 83690

== ENCOUNTER → 2024-12-07 13:26 | Outpatient (REF) | payer MEDICARE, OTHER, SELFPAY | LOC: HWRAD 13:26 | PROVIDERS: ATTENDING PHYSICIAN Internal Medicine Critical Care Medicine; FAMILY PHYSICIAN Nurse Practitioner Adult Health; REFERRING PHYSICIAN Nurse Practitioner Gerontology | DX: Z87.891 Personal history of nicotine dependence (principal); K85.90 Acute pancreatitis without necrosis or infection, unspecified | CPT/HCPCS: 71271; 76700 ==

== ENCOUNTER → 2024-12-12 12:44 | Outpatient (REF) | payer MEDICARE, OTHER, SELFPAY | LOC: WDC 12:44 | PROVIDERS: ATTENDING PHYSICIAN Nurse Practitioner Family; FAMILY PHYSICIAN Nurse Practitioner Adult Health | DX: N64.59 Other signs and symptoms in breast (principal); Z85.3 Personal history of malignant neoplasm of breast | CPT/HCPCS: 76642 ==

== ENCOUNTER → 2024-12-15 12:11 | Outpatient (REF) | payer MEDICARE, OTHER, SELFPAY ==
[2024-12-15 13:34] LABS: HDL Cholesterol 39 mg/dl; LDL Cholesterol, Calculated 138 mg/dl; Total Cholesterol 226 mg/dl (50-199); Triglyceride 249 mg/dl (10-149); Very Low Density Lipoprotein 49 mg/dl (0-30)
== END ==
LOC: REG 12:11
PROVIDERS: ATTENDING PHYSICIAN Nurse Practitioner Gerontology; FAMILY PHYSICIAN Nurse Practitioner Adult Health
DX: I25.10 Atherosclerotic heart disease of native coronary artery without angina pectoris (principal); E78.2 Mixed hyperlipidemia
CPT/HCPCS: 36415; 80061

== ENCOUNTER → 2025-04-10 08:37 | Outpatient (REF) | payer MEDICARE, OTHER, SELFPAY ==
[2025-04-10 12:14] LABS: Hematocrit 39.8 % (37.0-47.0); Hemoglobin 13.5 g/dL (12.0-16.0); Mean Corp Hgb Conc. 33.9 g/dL (33.0-37.0); Mean Corpuscular Volume 93.0 fL (81.0-99.0); Nucleated Red Blood Cells % 0 %; Platelet Count 193 10^3/uL (130-400); Red Cell Dist. Width 13.5 % (11.5-14.5)
[2025-04-10 12:30] LABS: ALT (SGPT) 42 U/L (0-35); AST (SGOT) 38 U/L (14-36); Albumin 4.3 g/dl (3.5-5.0); Alkaline Phosphatase 67 U/L (38-126); Blood Urea Nitrogen 14 mg/dl (7-17); Calcium 9.3 mg/dl (8.4-10.2); Carbon Dioxide 28 mmol/L (22-30); Chloride 104 mmol/L (98-107); Glucose 118 mg/dl (70-99); HDL Cholesterol 45 mg/dl; LDL Cholesterol, Calculated 192 mg/dl; Potassium 4.6 mmol/L (3.5-5.1); Sodium 139 mmol/L (135-145); Total Protein 7.1 g/dl (6.3-8.2); Very Low Density Lipoprotein 47 mg/dl (0-30); eGFR > 60.00
[2025-04-10 12:36] LABS: C-Reactive Protein < 5.00 mg/L (0.0-10.00)
== END ==
LOC: HWLAB 08:37
PROVIDERS: ATTENDING PHYSICIAN Internal Medicine Rheumatology; FAMILY PHYSICIAN Nurse Practitioner Adult Health
DX: E78.00 Pure hypercholesterolemia, unspecified (principal); K76.0 Fatty (change of) liver, not elsewhere classified; I89.0 Lymphedema, not elsewhere classified; M19.011 Primary osteoarthritis, right shoulder; M54.2 Cervicalgia
CPT/HCPCS: 36415; 80053; 80061; 85025; 85652; 86140

== ENCOUNTER → 2025-04-25 11:41 | Outpatient (REF) | payer MEDICARE, OTHER, SELFPAY ==
[2025-04-25 14:30] LABS: Vitamin B12 550 pg/ml (239-931)
[2025-04-25 14:42] LABS: HDL Cholesterol 41 mg/dl; LDL Cholesterol, Calculated 192 mg/dl; Very Low Density Lipoprotein 37 mg/dl (0-30)
== END ==
LOC: REG 11:41
PROVIDERS: ATTENDING PHYSICIAN Nurse Practitioner Adult Health
DX: E78.00 Pure hypercholesterolemia, unspecified (principal); R19.8 Other specified symptoms and signs involving the digestive system and abdomen; R26.81 Unsteadiness on feet
CPT/HCPCS: 36415; 80061; 82607; 84443

== ENCOUNTER → 2025-05-02 09:17 | Outpatient (REF) | payer MEDICARE, OTHER, SELFPAY | LOC: HWRAD 09:17 | PROVIDERS: ATTENDING PHYSICIAN Nurse Practitioner Adult Health | DX: R79.89 Other specified abnormal findings of blood chemistry (principal); R19.8 Other specified symptoms and signs involving the digestive system and abdomen | CPT/HCPCS: 76700 ==

== ENCOUNTER → 2025-07-04 09:06 | Outpatient (REF) | payer MEDICARE, OTHER, SELFPAY | LOC: EMG 09:06 | PROVIDERS: ATTENDING PHYSICIAN Specialist Research Data Abstracter/Coder; FAMILY PHYSICIAN Family Medicine | DX: R26.89 Other abnormalities of gait and mobility (principal); R20.2 Paresthesia of skin | CPT/HCPCS: 95886; 95913 ==

== ENCOUNTER → 2025-07-04 10:52 | Outpatient (REF) | payer MEDICARE, OTHER, SELFPAY ==
[2025-07-04 12:32] LABS: Urine Character Clear (Clear)
[2025-07-04 12:54] LABS: Urine Red Blood Cell 0-2 /HPF (0-2)
[2025-07-04 16:45] LABS: HDL Cholesterol 51 mg/dl; LDL Cholesterol, Calculated 112 mg/dl; Very Low Density Lipoprotein 22 mg/dl (0-30)
== END ==
LOC: REG 10:52
PROVIDERS: ATTENDING PHYSICIAN Specialist Research Data Abstracter/Coder; FAMILY PHYSICIAN Family Medicine
DX: R30.0 Dysuria (principal); E78.00 Pure hypercholesterolemia, unspecified
CPT/HCPCS: 36415; 80061; 81003; 81015; 87086